=== PATIENT | male | born 1975 | race Caucasian/White ===

== ENCOUNTER → 2021-01-03 | Outpatient (CLI) | payer OTHER | LOC: COL.RAD 21:45 | DX: N44.2 Benign cyst of testis (principal); N43.3 Hydrocele, unspecified ==

== ENCOUNTER 2022-01-06 10:17 | Day surgery (SDC) | payer OTHER ==
[~2022-01-06] VITALS: Ht 177.8 cm; Wt 91.8 kg
[2022-01-06] MEDS ORDERED: PRILOSEC 20MG20 MG PO (10:50)
[2022-01-06 10:51] VITALS: BP 124/83; PULSE 66; TEMP 99
[2022-01-06 12:03] VITALS: BP 131/86; PULSE 72; TEMP 97.8
[2022-01-06 12:18] VITALS: BP 137/94; PULSE 69
== END 2022-01-06 12:50 | disposition home or self-care (01) ==
LOC: SDCO 10:17
DX: K21.00 Gastro-esophageal reflux disease with esophagitis, without bleeding (principal); K44.9 Diaphragmatic hernia without obstruction or gangrene; F17.210 Nicotine dependence, cigarettes, uncomplicated
CPT/HCPCS: J2704; J7120